=== PATIENT | male | born 1990 | race Two or more races ===

== ENCOUNTER 2022-05-07 14:37 | Emergency (ER) | payer MEDICAID ==
[~2022-05-07] VITALS: Ht 193 cm; Wt 108.9 kg
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
--- NOTE | 2022-05-07 15:10 | NUR ---
at bedside for eval
[2022-05-07] MEDS ORDERED: ACETAMINOPHEN ES 500 MG TABLET ONE (15:16)
[2022-05-07] MEDS ORDERED: IBUPROFEN 600 MG TABLET ONE (15:16)
[2022-05-07] MEDS ORDERED: ACETAMINOPHEN ES 500 MG TABLET PO ONE (15:30)
[2022-05-07] MEDS ORDERED: IBUPROFEN 600 MG TABLET PO ONE (15:30)
[2022-05-07] MEDS ORDERED: IBUP-1953 PO (15:43)
--- NOTE | 2022-05-07 15:49 | NUR ---
Patient discharged to home in stable condition. Written and verbal after care instructions given. Patient verbalizes understanding of instruction.
[2022-05-07 15:50] VITALS: BP 141/68
== END 2022-05-07 15:50 | disposition home or self-care (01) ==
LOC: ER 14:47
DX: S40.012A Contusion of left shoulder, initial encounter (principal); V49.9XXA Car occupant (driver) (passenger) injured in unspecified traffic accident, initial encounter; Y93.89 Activity, other specified; Y92.89 Other specified places as the place of occurrence of the external cause; Y99.8 Other external cause status
CPT/HCPCS: 70450-TC; 73030-TC